=== PATIENT | male | born 1965 | race African-American/Black ===

== ENCOUNTER 2024-11-04 11:28 | Inpatient (IN) | payer OTHER ==
[2024-11-04 11:42] VITALS: BMI 23.0
[2024-11-04] MEDS ORDERED: BENZOCAINE/MENTHOL (CHLORASEPTIC ) LOZENGE MM PRN (12:09)
[2024-11-04] MEDS ORDERED: MAGNESIUM HYDROX 2400MG/30ML ORAL SUSPENSION 30 ML CUP PO PRN (12:09)
[2024-11-04] MEDS ORDERED: IBUPROFEN 400 MG TABLET (FP) PO PRN (12:09)
[2024-11-04] MEDS ORDERED: hydrOXYzine PAMOATE 25 MG CAPSULE (FP) PO PRN (12:09)
[2024-11-04] MEDS ORDERED: BISMUTH SUBSALICYLATE 262 MG/15 ML BTL PO PRN (12:09)
[2024-11-04] MEDS ORDERED: NALOXONE (NARCAN) HCL 4 MG/0.1 ML SPRAY NS PRN (12:09)
[2024-11-04] MEDS ORDERED: BENZONATATE 200 MG CAPSULE PO PRN (12:09)
[2024-11-04] MEDS ORDERED: POLYETHYLENE GLYCOL (HEALTHYLAX) 3350 17 GM PACKET PO PRN (12:09)
[2024-11-04] MEDS ORDERED: guaiFENesin 600 MG TABLET.ER (FP) PO PRN (12:09)
[2024-11-04] MEDS ORDERED: LOPERAMIDE HCL 2 MG CAPSULE PO PRN (12:09)
[2024-11-04] MEDS ORDERED: ONDANSETRON *ODT* 4 MG TABLET SL PRN (12:09)
[2024-11-04] MEDS ORDERED: METHOCARBAMOL 500 MG TABLET PO PRN (12:09)
[2024-11-04] MEDS ORDERED: chlordiazePOXIDE HCL 25 MG CAPSULE PO PRN (12:09)
[2024-11-04] MEDS ORDERED: ACETAMINOPHEN 325 MG TABLET (FP) PO PRN (12:09)
[2024-11-04] MEDS ORDERED: DICYCLOMINE HCL 10 MG CAPSULE PO PRN (12:09)
[2024-11-04] MEDS ORDERED: amLODIPine BESYLATE 5 MG TABLET (FP) ONE (13:20)
[2024-11-04] MEDS ORDERED: LISINOPRIL 10 MG TABLET ONE (13:21)
[2024-11-04] MEDS ORDERED: PRENATAL VITAMINS W/ FOLIC ACID TABLET (FP) PO ONE (13:21)
[2024-11-04] MEDS: PRENATAL VITAMINS W/ FOLIC ACID TABLET (FP) PO SCH (13:22)
[2024-11-04] MEDS: amLODIPine BESYLATE 10 MG TABLET (FP) PO SCH (13:23)
[2024-11-04] MEDS: LISINOPRIL 10 MG TABLET PO SCH (13:23)
[2024-11-04] MEDS: chlordiazePOXIDE HCL 25 MG CAPSULE PO SCH (17:21)
[2024-11-04] MEDS: MELATONIN 5 MG TABLETS PO SCH (22:17)
[2024-11-04] MEDS: THIAMINE 100 MG TABLET PO SCH (22:17)
[2024-11-05 10:02] LABS: HEMATOCRIT 38.6 % (40.1-51.0); HEMOGLOBIN 12.5 g/dL (13.7-17.5); MCHC 32.4 g/dl (32.3-36.5); MEAN CELL VOLUME 87.7 fl (79.0-92.2); MEAN PLT VOLUME 11.6 fl (9.4-12.4); PLATELET COUNT 184 x10^3/uL (163-337); RDW 17.6 % (12.2-16.1)
[2024-11-05] MEDS: ASPIRIN COATED 81 MG TABLET.EC PO SCH (10:16)
[2024-11-05 10:59] LABS: ALBUMIN 3.2 g/dl (3.4-5.0); BLOOD UREA NITROGEN 20.5 mg/dL (7-18)
[2024-11-05 11:00] LABS: BILIRUBIN,TOTAL 0.4 mg/dL (0.2-1)
[2024-11-05 11:01] LABS: CREATININE 0.9 mg/dL (0.55-1.3); TOT PROT 6.2 g/dl (6.4-8.2)
[2024-11-05 11:02] LABS: CALCIUM 9.5 mg/dL (8.5-10.1)
[2024-11-05] MEDS ORDERED: ALBUTEROL SO4 HFA INHALER IH PRN (12:31)
[2024-11-05] MEDS: metFORMIN HCL 500 MG TABLET (FP) PO SCH (13:22)
[2024-11-05] MEDS: LACTULOSE 20 GM/30 ML UDC (FOR ORAL USE ONLY) PO SCH (13:22)
[2024-11-05] MEDS: FLUTICASONE/SALMETEROL (WIXELA) 100 MCG/50 MCG DISKUS IH SCH (13:42)
[2024-11-05] MEDS: MONTELUKAST NA 10 MG TABLET PO SCH (22:01)
[2024-11-06] MEDS: chlordiazePOXIDE HCL 25 MG CAPSULE PO SCH (06:03)
[2024-11-07] MEDS ORDERED: chlordiazePOXIDE HCL 10 MG CAPSULE PO PRN
[2024-11-07] MEDS: chlordiazePOXIDE HCL 10 MG CAPSULE PO SCH (05:16)
[2024-11-08] MEDS: chlordiazePOXIDE HCL 10 MG CAPSULE PO SCH (05:25)
[2024-11-08] MEDS: MAG HYDROX/AL HYDROX/SIMETH 30 ML UNIT-DOSE CUP PO PRN (22:20)
[2024-11-09] MEDS: chlordiazePOXIDE HCL 10 MG CAPSULE PO ONE (05:24)
[2024-11-09] MEDS: IBUPROFEN 600 MG TABLET (FP) PO PRN (05:27)
[2024-11-09 08:55] VITALS: BP 110/67; PULSE 79; RESP 18; TEMP 97.4
[2024-11-09] MEDS: TOLNAFTATE 1% CREAM 15 GM TUBE TP SCH (09:38)
[2024-11-09] MEDS: NALTREXONE HCL 50 MG TABLET PO ONE (10:29)
== END 2024-11-09 12:18 | disposition other institution (70) | DRG 774 ==
LOC: YASAS 11:28 → Y3N 13:01
PROVIDERS: ADMIT Allergy & Immunology; ATTEND Allergy & Immunology
PROC: HZ2ZZZZ Detoxification Services for Substance Abuse Treatment (ICD-10-PCS; principal; 2024-11-04)
DX: F10.230 Alcohol dependence with withdrawal, uncomplicated (principal); F14.20 Cocaine dependence, uncomplicated; F12.20 Cannabis dependence, uncomplicated; F17.210 Nicotine dependence, cigarettes, uncomplicated; F31.9 Bipolar disorder, unspecified; F19.24 Other psychoactive substance dependence with psychoactive substance-induced mood disorder; F41.9 Anxiety disorder, unspecified; I10 Essential (primary) hypertension; J45.909 Unspecified asthma, uncomplicated; E78.5 Hyperlipidemia, unspecified; E11.9 Type 2 diabetes mellitus without complications; Z79.84 Long term (current) use of oral hypoglycemic drugs; M54.50 Low back pain, unspecified; G89.29 Other chronic pain; B35.1 Tinea unguium; Z59.01 Sheltered homelessness
CPT/HCPCS: 36415; 80053; 80305; 80307; 82140; 82962; 85027; 86593; 86780; 87811; 93005; 93010